=== PATIENT | female | born 1965 | race Caucasian/White ===

== ENCOUNTER → 2018-06-30 16:41 | Outpatient (CLI) | payer BC, SELFPAY ==
--- NOTE | 2018-06-30 16:49 | CT_ITS ---
STUDY: CT ABDOMEN AND PELVIS WITHOUT CONTRAST REASON FOR EXAM: Female, 52 years old. Right-sided pain. RADIATION DOSAGE (If Supplied By Facility): CTDIvol = ( 6.05 ) mGy, DLP = ( 237.72 ) mGycm TECHNIQUE: Transaxial images were obtained from the dome of the diaphragm to the symphysis pubis without oral contrast, and without intravenous contrast. Sagittal and coronal images were reconstructed. Individualized dose optimization techniques were used for this CT. COMPARISON: None. FINDINGS: The visualized lung bases are unremarkable. The visualized portions of the heart are within normal limits. Examination of the abdomen and pelvis is extremely limited in this patient with very little abdominal fat and no IV or oral contrast. There is hepatomegaly. No definite focal abnormality of the liver. Gallbladder is contracted and suboptimally evaluated. Pancreas is very poorly seen but with no gross mass. Spleen is unremarkable. Adrenal glands are unremarkable. Right kidney is abnormal. It appears extensively scarred antrum and has numerous parenchymal calcifications. Nonobstructing stones are not excluded. No hydronephrosis. Left kidney is within normal limits. Evaluation of the GI tract is limited by absence of oral contrast. Cannot exclude stomach wall thickening. No dilated loops of bowel or evidence for obstruction. Cannot exclude segmental thickening of the [place] of the small or large bowel. Cannot exclude enteritis or colitis. Very marked diffuse fecal retention. Diverticulosis without definite diverticulitis. Appendix within normal limits. Normal abdominal aorta. Normal inferior vena cava. Normal retroperitoneum. Normal urinary bladder. Normal visualized uterus. Widespread changes of the subcutaneous tissues and abdominal wall and buttocks, suggestive of previous cosmetic surgery, with areas of scarring and granuloma formation. Normal osseous structures. CT/Abdomen/Pelvis without Cont IMPRESSION: No definite obstructing renal stones. Right kidney appears significantly scar and atrophic with parenchymal calcifications. Very limited evaluation of the GI tract-marked fecal retention. Electronically Signed: Alverto Hickman MD at 0:00 EDT , Service support ,
== END ==
PROVIDERS: Family Provider Family Medicine; PCP Family Medicine; Referring Provider Urology; Visit Provider Urology
DX: N20.0 Calculus of kidney (principal)
CPT/HCPCS: 74176